=== PATIENT | male | born 1985 | race Caucasian/White ===

== ENCOUNTER 2021-06-12 12:07 | Inpatient (IN) | payer BC ==
[~2021-06-12] VITALS: Ht 190.5 cm; Wt 154.6 kg
[2021-06-12] MEDS ORDERED: normal saline 1000ML IV soln IVB ONE (12:25)
[2021-06-12 13:08] LABS: BASOPHILS % (AUTO) 0.2 % (0-1); EOSINOPHILS # (AUTO) 0.4 X10'3 (0-0.9); EOSINOPHILS % (AUTO) 2.7 % (0-6); HEMOGLOBIN 15.2 g/dl (14.0-17.9); LYMPHOCYTES % (AUTO) 7.7 % (21-51); MEAN CORPUSCULAR HEMOGLOBIN 30.5 PG (27.0-31.0); MEAN CORPUSCULAR HGB CONC 33.7 g/dL (33.0-36.5); MEAN CORPUSCULAR VOLUME 90.5 FL (78-98); MEAN PLATELET VOLUME 8.8 FL (7.4-10.4); MONOCYTES # (AUTO) 0.7 X10'3 (0-0.9); MONOCYTES % (AUTO) 5.7 % (2-12); NEUTROPHILS % (AUTO) 83.7 % (42-75); PLATELET COUNT 305 X10'3 (140-440); RED BLOOD COUNT 4.97 X10'6 (4.70-6.10); RED CELL DISTRIBUTION WIDTH 13.5 % (11.5-14.5); WHITE BLOOD COUNT 13.2 X10'3 (4.5-11.0)
[2021-06-12] MEDS ORDERED: IOHEXOL 12MG/ML oral solution 500 ML BOTTLE PO ONE (13:15)
[2021-06-12 13:26] LABS: ALANINE AMINOTRANSFERASE 44 U/L (12-78); ALBUMIN 3.5 G/DL (3.4-5.0); ALBUMIN/GLOBULIN RATIO 0.7 (1.1-1.5); ALKALINE PHOSPHATASE 102 IU/L (46-116); ANION GAP 13 (8-16); ASPARTATE AMINO TRANSFERASE 22 U/L (10-37); BILIRUBIN,TOTAL 1.2 MG/DL (0.1-1.0); BLOOD UREA NITROGEN 11 MG/DL (7-18); BUN/CREATININE RATIO 10.5 (5.4-32.0); CALCIUM 9.2 MG/DL (8.5-10.1); CHLORIDE 98 MMOL/L (99-107); CREATININE 1.05 MG/DL (0.60-1.10); GLUCOSE 106 MG/DL (70-104); LIPASE 82 U/L (73-393); SODIUM 137 MMOL/L (135-145); TOTAL CARBON DIOXIDE 25.6 MMOL/L (24-32); TOTAL PROTEIN 8.7 G/DL (6.4-8.2); eGFR 81 ML/MIN
[2021-06-12] MEDS ORDERED: iohexol 300mg/ml 100ml inj. ONE (13:26)
[2021-06-12] MEDS ORDERED: morphine 4 MG/ML inj SYRINge IV ONE ×2 (15:35)
[2021-06-12] MEDS ORDERED: normal saline 1000ml 1,000 ML IV ONE (15:35)
[2021-06-12] MEDS ORDERED: metroNIDAZOLE-Flagyl 500mg/NS 100 ML IV ONE (15:35)
[2021-06-12] MEDS ORDERED: ondansetron/PF 4mg/2ml inj IV ONE ×2 (15:35)
[2021-06-12] MEDS ORDERED: CefTRIAXone/D5W-Rocephin 1gm 50 ML IV ONE ×2 (15:35)
[2021-06-12] MEDS ORDERED: piperacillin/tazo 3.375gm/50ml 50 ML IV ONE (15:35)
[2021-06-12] MEDS ORDERED: DEXL60CA3 PO (15:41)
[2021-06-12] MEDS ORDERED: ALBU8HFA IH (15:41)
[2021-06-12] MEDS ORDERED: levoFLOXACIN-Levaquin 750MG/D5 150 ML IV STA (16:14)
[2021-06-12] MEDS ORDERED: potassium Cl 40MEQ/1/2NS 520ml 520 ML IV PRN ×2 (16:20)
[2021-06-12] MEDS ORDERED: magnesium 4gm in 100ml NS 100 ML IV PRN (16:20)
[2021-06-12] MEDS ORDERED: potassium Cl 20 mEq SR tablet PO PRN ×2 (16:20)
[2021-06-12] MEDS ORDERED: magnesium hydroxide 30ml (MOM) UD suspension PO PRN (16:20)
[2021-06-12] MEDS ORDERED: magnesium 2GM in 50ml NS 50 ML IV PRN (16:20)
[2021-06-12] MEDS ORDERED: acetaminophen 325mg tablet PO PRN (16:20)
[2021-06-12] MEDS ORDERED: HYDROmorphone inj. 0.5 MG/0.5 ML DISP.SYRIN IV PRN (16:20)
--- NOTE | 2021-06-12 16:23 | NUR ---
DR SADLER HAS BEEN AT BEDSIDE TO SEE PT
[2021-06-12] MEDS ORDERED: metroNIDAZOLE-Flagyl 500mg/NS 100 ML IV SCH (16:38)
[2021-06-12 16:53] LABS: CLARITY,URINE CLEAR (Clear); COLOR,URINE YELLOW (Yellow); GLUCOSE, URINE NEGATIVE (Neg); KETONES,URINE 40 mg/dl (Neg); LEUKOCYTE ESTERASE ,URINE NEGATIVE (Neg); NITRITES, URINE NEGATIVE (Neg); OCCULT BLOOD,URINE TRACE-INTACT (Neg); PH,URINE 5.5 (4.8-8.0); PROTEIN,URINE TRACE mg/dl (Neg); UA COLLECTION TYPE CLN CATCH MIDSTREAM; UROBILINOGEN,URINE 0.2 E.U/dL (0.2-1.0)
[2021-06-12 17:00] LABS: BACTERIA,URINE NONE SEEN /HPF (Neg); MUCUS STRANDS NONE SEEN /LPF (Neg); RBC,URINE 0-2 /HPF (0-2); SQUAMOUS EPITHELIAL CELL,UR NONE SEEN /LPF (FEW); WBC,URINE 0-4 /HPF (0-4)
[2021-06-12] MEDS: HYDROmorphone 1 mg/ml syringe IV PRN (17:16)
[2021-06-12] MEDS: normal saline 1000ml 1,000 ML IV SCH (17:20)
[2021-06-12] MEDS: K and/or MAG REPLACEMENT MC SCH (18:15)
--- NOTE | 2021-06-12 20:40 | NUR ---
DR DEWITT HAS BEEN AT BEDSIDE TO SEE PT, REPORTS IT IS OK FOR PT TO HAVE LOVENOX AND CLD
[2021-06-12] MEDS: enoxaparin 40mg/0.4ml syringe SQ SCH (21:06)
--- NOTE | 2021-06-13 01:05 | NUR ---
PATIENT ADMITTED TO ROOM 360A FROM ER FOR ABDOMINAL ABSCESS WITH PERFORATION OF THE SIGMOID COLON. PLACED COMFORTABLE IN BED. VITAL SIGNS TAKEN AND RECORDED.
[2021-06-13 01:20] VITALS: BP 140/78
[2021-06-13] MEDS: metroNIDAZOLE-Flagyl 500mg/NS 100 ML IV SCH ×4 (02:53→19:40)
[2021-06-13] MEDS: normal saline 1000ml 1,000 ML IV SCH ×3 (02:56→22:20)
[2021-06-13 05:55] LABS: BASOPHILS % (AUTO) 0.3 % (0-1); EOSINOPHILS # (AUTO) 0.5 X10'3 (0-0.9); EOSINOPHILS % (AUTO) 6.9 % (0-6); HEMOGLOBIN 13.4 g/dl (14.0-17.9); LYMPHOCYTES % (AUTO) 13.4 % (21-51); MEAN CORPUSCULAR HEMOGLOBIN 30.5 PG (27.0-31.0); MEAN CORPUSCULAR HGB CONC 33.6 g/dL (33.0-36.5); MEAN CORPUSCULAR VOLUME 90.8 FL (78-98); MEAN PLATELET VOLUME 8.8 FL (7.4-10.4); MONOCYTES # (AUTO) 0.7 X10'3 (0-0.9); MONOCYTES % (AUTO) 9.6 % (2-12); NEUTROPHILS # (AUTO) 5.4 X10'3 (1.8-7.7); NEUTROPHILS % (AUTO) 69.8 % (42-75); PLATELET COUNT 211 X10'3 (140-440); RED BLOOD COUNT 4.41 X10'6 (4.70-6.10); RED CELL DISTRIBUTION WIDTH 13.3 % (11.5-14.5); WHITE BLOOD COUNT 7.7 X10'3 (4.5-11.0)
[2021-06-13 06:24] LABS: ALANINE AMINOTRANSFERASE 91 U/L (12-78); ALBUMIN 2.8 G/DL (3.4-5.0); ALBUMIN/GLOBULIN RATIO 0.6 (1.1-1.5); ALKALINE PHOSPHATASE 145 IU/L (46-116); ANION GAP 11 (8-16); ASPARTATE AMINO TRANSFERASE 66 U/L (10-37); BILIRUBIN,TOTAL 0.7 MG/DL (0.1-1.0); BLOOD UREA NITROGEN 10 MG/DL (7-18); BUN/CREATININE RATIO 10.9 (5.4-32.0); CALCIUM 8.2 MG/DL (8.5-10.1); CHLORIDE 104 MMOL/L (99-107); CREATININE 0.92 MG/DL (0.60-1.10); GLUCOSE 97 MG/DL (70-104); MAGNESIUM 2.2 MG/DL (1.5-2.4); POTASSIUM 3.5 MMOL/L (3.5-5.1); SODIUM 141 MMOL/L (135-145); TOTAL CARBON DIOXIDE 26.3 MMOL/L (24-32); TOTAL PROTEIN 7.2 G/DL (6.4-8.2); eGFR > 90 ML/MIN
--- NOTE | 2021-06-13 06:30 | NUR ---
Problems reprioritized. Patient report given, questions answered & plan of care reviewed with ARMAND DELGADO.
--- NOTE | 2021-06-13 06:59 | NUR ---
Patient in room [facility]. I have received report from ALEE DELGADO and had the opportunity to ask questions and assume patient care.
[2021-06-13 07:05] VITALS: BP 115/66
[2021-06-13] MEDS: pantoprazole 40mg Tablet.DR PO SCH (07:14)
[2021-06-13] MEDS: K and/or MAG REPLACEMENT MC SCH ×2 (08:00→20:00)
[2021-06-13] MEDS: levoFLOXACIN-Levaquin 750MG/D5 150 ML IV SCH (08:52)
[2021-06-13] MEDS: HYDROmorphone 1 mg/ml syringe IV PRN ×3 (08:57→21:35)
[2021-06-13 11:00] VITALS: BP 112/72
[2021-06-13] MEDS: mag hydrox/Alum hydrox/simeth 30ml oral suspension PO PRN ×2 (13:26→23:48)
[2021-06-13] MEDS: ondansetron/PF 4mg/2ml inj IV PRN (17:23)
[2021-06-13 18:30] VITALS: BP 135/63
--- NOTE | 2021-06-13 18:46 | NUR ---
patient c/o pain 05/22 medicated with effect, but stated he felt dizzy with dilaudid and nauseous. medicated with Zofran with effect. Sweating profusley but afebrile and labs WNL. Seen by Dr Briones. . continues on IV ABX see EMAR. Report given to Israel DELGADO
--- NOTE | 2021-06-13 18:52 | NUR ---
I have received report from SANDY Rodríguez and had the opportunity to ask questions and assume patient care.
[2021-06-13] MEDS: enoxaparin 40mg/0.4ml syringe SQ SCH (19:38)
[2021-06-13] MEDS: lactobacillus rhamnosus 10,000 MMU CELLS/CAPSULE PO SCH (19:38)
[2021-06-13] MEDS ORDERED: proCHLORperazine 10 MG/2 ml inj IV PRN (22:45)
[2021-06-13] MEDS: Melatonin 3mg tablet PO PRN (23:49)
[2021-06-14 00:58] VITALS: BP 134/87
[2021-06-14 01:30] VITALS: BP 134/87
[2021-06-14] MEDS: metroNIDAZOLE-Flagyl 500mg/NS 100 ML IV SCH ×4 (02:06→19:45)
[2021-06-14] MEDS: normal saline 1000ml 1,000 ML IV SCH ×2 (04:33→14:27)
--- NOTE | 2021-06-14 06:10 | NUR ---
Problems reprioritized. Patient report given, questions answered & plan of care reviewed with SANDY Titus.
--- NOTE | 2021-06-14 06:20 | NUR ---
Patient in room [facility]. I have received report from Rolly DELGADO and had the opportunity to ask questions and assume patient care.
[2021-06-14 07:16] LABS: BASOPHILS % (AUTO) 0.2 % (0-1); EOSINOPHILS # (AUTO) 0.5 X10'3 (0-0.9); EOSINOPHILS % (AUTO) 9.5 % (0-6); HEMATOCRIT 40.4 % (42.0-52.0); HEMOGLOBIN 13.7 g/dl (14.0-17.9); LYMPHOCYTES % (AUTO) 20.8 % (21-51); MEAN CORPUSCULAR HEMOGLOBIN 29.9 PG (27.0-31.0); MEAN PLATELET VOLUME 8.3 FL (7.4-10.4); MONOCYTES # (AUTO) 0.5 X10'3 (0-0.9); MONOCYTES % (AUTO) 9.2 % (2-12); NEUTROPHILS % (AUTO) 60.3 % (42-75); PLATELET COUNT 206 X10'3 (140-440); RED BLOOD COUNT 4.59 X10'6 (4.70-6.10); RED CELL DISTRIBUTION WIDTH 13.3 % (11.5-14.5)
[2021-06-14 07:52] LABS: ALANINE AMINOTRANSFERASE 122 U/L (12-78); ALBUMIN 2.6 G/DL (3.4-5.0); ALBUMIN/GLOBULIN RATIO 0.6 (1.1-1.5); ALKALINE PHOSPHATASE 220 IU/L (46-116); ANION GAP 12 (8-16); ASPARTATE AMINO TRANSFERASE 81 U/L (10-37); BILIRUBIN,TOTAL 0.5 MG/DL (0.1-1.0); BLOOD UREA NITROGEN 7 MG/DL (7-18); BUN/CREATININE RATIO 8.8 (5.4-32.0); CALCIUM 8.2 MG/DL (8.5-10.1); CHLORIDE 106 MMOL/L (99-107); GLUCOSE 100 MG/DL (70-104); MAGNESIUM 2.1 MG/DL (1.5-2.4); POTASSIUM 3.9 MMOL/L (3.5-5.1); SODIUM 141 MMOL/L (135-145); TOTAL PROTEIN 6.9 G/DL (6.4-8.2); eGFR > 90 ML/MIN
[2021-06-14] MEDS: lactobacillus rhamnosus 10,000 MMU CELLS/CAPSULE PO SCH ×2 (07:56→19:45)
[2021-06-14] MEDS: levoFLOXACIN-Levaquin 750MG/D5 150 ML IV SCH (07:56)
[2021-06-14] MEDS: pantoprazole 40mg Tablet.DR PO SCH (07:56)
[2021-06-14 08:00] VITALS: BP 124/68
[2021-06-14] MEDS: K and/or MAG REPLACEMENT MC SCH ×2 (08:08→19:46)
[2021-06-14 11:00] VITALS: BP 145/87
[2021-06-14] MEDS: dronabinol 2.5mg capsule PO PRN ×2 (11:03→18:37)
[2021-06-14] MEDS: DEXILANT 60 MG PO SCH (15:32)
[2021-06-14 18:00] VITALS: BP 153/86
--- NOTE | 2021-06-14 18:30 | NUR ---
Problems reprioritized. Patient report given, questions answered & plan of care reviewed with Maricarmen DELAGDO.
--- NOTE | 2021-06-14 18:56 | NUR ---
Patient in room [facility]. I have received report from Ariela DELGADO and had the opportunity to ask questions and assume patient care. Pt is sitting on the side of the bed with his significant other. No signs of distress, will continue to monitor.
[2021-06-14] MEDS: enoxaparin 40mg/0.4ml syringe SQ SCH (19:45)
[2021-06-14] MEDS: Melatonin 3mg tablet PO PRN (22:31)
[2021-06-14] MEDS: ondansetron/PF 4mg/2ml inj IV PRN (22:32)
[2021-06-14 23:46] VITALS: BP 130/80
[2021-06-15] MEDS: metroNIDAZOLE-Flagyl 500mg/NS 100 ML IV SCH ×4 (02:36→20:25)
[2021-06-15] MEDS: normal saline 1000ml 1,000 ML IV SCH ×2 (05:40→14:20)
[2021-06-15 06:04] LABS: BASOPHILS % (AUTO) 0.3 % (0-1); EOSINOPHILS # (AUTO) 0.6 X10'3 (0-0.9); EOSINOPHILS % (AUTO) 10.8 % (0-6); HEMATOCRIT 40.9 % (42.0-52.0); LYMPHOCYTES # (AUTO) 1.3 X10'3 (1.1-4.8); LYMPHOCYTES % (AUTO) 22.4 % (21-51); MEAN CORPUSCULAR HEMOGLOBIN 30.2 PG (27.0-31.0); MEAN CORPUSCULAR HGB CONC 34.3 g/dL (33.0-36.5); MEAN CORPUSCULAR VOLUME 88.2 FL (78-98); MEAN PLATELET VOLUME 8.6 FL (7.4-10.4); MONOCYTES # (AUTO) 0.5 X10'3 (0-0.9); NEUTROPHILS # (AUTO) 3.3 X10'3 (1.8-7.7); NEUTROPHILS % (AUTO) 57.5 % (42-75); PLATELET COUNT 250 X10'3 (140-440); RED BLOOD COUNT 4.63 X10'6 (4.70-6.10); RED CELL DISTRIBUTION WIDTH 13.2 % (11.5-14.5); WHITE BLOOD COUNT 5.7 X10'3 (4.5-11.0)
[2021-06-15 06:13] LABS: ALANINE AMINOTRANSFERASE 99 U/L (12-78); ALBUMIN 2.8 G/DL (3.4-5.0); ALBUMIN/GLOBULIN RATIO 0.7 (1.1-1.5); ALKALINE PHOSPHATASE 176 IU/L (46-116); ANION GAP 10 (8-16); ASPARTATE AMINO TRANSFERASE 43 U/L (10-37); BILIRUBIN,TOTAL 0.4 MG/DL (0.1-1.0); BLOOD UREA NITROGEN 7 MG/DL (7-18); BUN/CREATININE RATIO 8.8 (5.4-32.0); CALCIUM 8.4 MG/DL (8.5-10.1); CHLORIDE 104 MMOL/L (99-107); GLUCOSE 88 MG/DL (70-104); POTASSIUM 3.9 MMOL/L (3.5-5.1); SODIUM 138 MMOL/L (135-145); TOTAL CARBON DIOXIDE 23.7 MMOL/L (24-32); eGFR > 90 ML/MIN
--- NOTE | 2021-06-15 06:13 | NUR ---
Problems reprioritized. Patient report given, questions answered & plan of care reviewed with Ariela DELGADO.
--- NOTE | 2021-06-15 06:52 | NUR ---
Patient in room [facility]. I have received report from Moraima DELGADO and had the opportunity to ask questions and assume patient care.
[2021-06-15] MEDS: lactobacillus rhamnosus 10,000 MMU CELLS/CAPSULE PO SCH ×2 (07:42→20:25)
[2021-06-15] MEDS: dronabinol 2.5mg capsule PO PRN ×2 (07:42→14:27)
[2021-06-15] MEDS: DEXILANT 60 MG PO SCH (07:42)
[2021-06-15] MEDS: K and/or MAG REPLACEMENT MC SCH ×2 (07:43→19:53)
[2021-06-15] MEDS: levoFLOXACIN-Levaquin 750MG/D5 150 ML IV SCH (07:43)
[2021-06-15 08:00] VITALS: BP 120/74
[2021-06-15 12:00] VITALS: BP 121/66
[2021-06-15] MEDS ORDERED: ondansetron 4mg rapidly disintigrating tab PO PRN (17:20)
--- NOTE | 2021-06-15 18:30 | NUR ---
Problems reprioritized. Patient report given, questions answered & plan of care reviewed with Moraima DELGADO.
--- NOTE | 2021-06-15 18:31 | NUR ---
Patient IV was bad 1400 dose of Flagyl was not given.
--- NOTE | 2021-06-15 19:00 | NUR ---
Patient in room [facility]. I have received report from Ariela DELGADO and had the opportunity to ask questions and assume patient care. Pt is sitting on the side of the bed visiting with his .
[2021-06-15 20:00] VITALS: BP 123/69
[2021-06-15] MEDS: mag hydrox/Alum hydrox/simeth 30ml oral suspension PO PRN (20:24)
[2021-06-15] MEDS: enoxaparin 40mg/0.4ml syringe SQ SCH (20:25)
--- NOTE | 2021-06-15 20:44 | NUR ---
Pt had no IV at the beginning of shift. IV was successfully placed at 2014. At that time I found that the 1399 Flagyl was hanging at bedside, unspiked by the dayshift RN, even though it had been scanned in [place]. I called pharmacy as another Flagyl was now due at 1999. Pharmacy said they were unable to antonieta it as a missed dose, or undo the unadministered dose, since the dayshift RN should have addressed it on her shift. water resource consultant, Loraine, was notified and the 1999 dose was administered per MD orders.
[2021-06-15] MEDS: Melatonin 3mg tablet PO PRN (23:41)
[2021-06-15] MEDS: ondansetron/PF 4mg/2ml inj IV PRN (23:43)
[2021-06-16 00:02] VITALS: BP 121/66
[2021-06-16] MEDS: normal saline 1000ml 1,000 ML IV SCH (00:20)
[2021-06-16] MEDS: metroNIDAZOLE-Flagyl 500mg/NS 100 ML IV SCH ×3 (02:30→14:04)
--- NOTE | 2021-06-16 06:30 | NUR ---
Problems reprioritized. Patient report given, questions answered & plan of care reviewed with Jasvir DELGADO.
[2021-06-16 06:49] LABS: BASOPHILS % (AUTO) 0.4 % (0-1); EOSINOPHILS # (AUTO) 0.5 X10'3 (0-0.9); EOSINOPHILS % (AUTO) 9.3 % (0-6); HEMATOCRIT 42.1 % (42.0-52.0); HEMOGLOBIN 14.4 g/dl (14.0-17.9); LYMPHOCYTES % (AUTO) 19.1 % (21-51); MEAN CORPUSCULAR HEMOGLOBIN 30.4 PG (27.0-31.0); MEAN CORPUSCULAR HGB CONC 34.1 g/dL (33.0-36.5); MEAN CORPUSCULAR VOLUME 89.1 FL (78-98); MEAN PLATELET VOLUME 8.6 FL (7.4-10.4); MONOCYTES # (AUTO) 0.6 X10'3 (0-0.9); MONOCYTES % (AUTO) 10.8 % (2-12); NEUTROPHILS # (AUTO) 3.1 X10'3 (1.8-7.7); NEUTROPHILS % (AUTO) 60.4 % (42-75); PLATELET COUNT 242 X10'3 (140-440); RED BLOOD COUNT 4.73 X10'6 (4.70-6.10); RED CELL DISTRIBUTION WIDTH 13.3 % (11.5-14.5); WHITE BLOOD COUNT 5.1 X10'3 (4.5-11.0)
[2021-06-16 07:03] LABS: ALANINE AMINOTRANSFERASE 76 U/L (12-78); ALBUMIN 2.9 G/DL (3.4-5.0); ALBUMIN/GLOBULIN RATIO 0.7 (1.1-1.5); ALKALINE PHOSPHATASE 143 IU/L (46-116); ANION GAP 12 (8-16); ASPARTATE AMINO TRANSFERASE 32 U/L (10-37); BILIRUBIN,TOTAL 0.4 MG/DL (0.1-1.0); BLOOD UREA NITROGEN 5 MG/DL (7-18); BUN/CREATININE RATIO 5.6 (5.4-32.0); CALCIUM 8.2 MG/DL (8.5-10.1); CHLORIDE 104 MMOL/L (99-107); CREATININE 0.89 MG/DL (0.60-1.10); GLUCOSE 96 MG/DL (70-104); MAGNESIUM 1.8 MG/DL (1.5-2.4); POTASSIUM 3.7 MMOL/L (3.5-5.1); SODIUM 139 MMOL/L (135-145); TOTAL CARBON DIOXIDE 23.2 MMOL/L (24-32); TOTAL PROTEIN 7.1 G/DL (6.4-8.2); eGFR > 90 ML/MIN
[2021-06-16 08:00] VITALS: BP 113/69
[2021-06-16] MEDS: K and/or MAG REPLACEMENT MC SCH (08:00)
[2021-06-16] MEDS: lactobacillus rhamnosus 10,000 MMU CELLS/CAPSULE PO SCH (08:12)
[2021-06-16] MEDS: DEXILANT 60 MG PO SCH (08:13)
[2021-06-16] MEDS: levoFLOXACIN-Levaquin 750MG/D5 150 ML IV SCH (08:13)
[2021-06-16] MEDS: mag hydrox/Alum hydrox/simeth 30ml oral suspension PO PRN (09:56)
[2021-06-16] MEDS ORDERED: METR500T PO (10:54)
[2021-06-16] MEDS ORDERED: LEVO500T89 PO (10:54)
[2021-06-16 11:00] VITALS: BP 114/76
== END 2021-06-16 16:15 | disposition home or self-care (01) | DRG 391 ==
LOC: ER 12:07 → ED HOLD 16:16 → SUR 3N 06-13 01:00
PROVIDERS: ADMIT Family Medicine; ATTEND Family Medicine
PROC: BW211ZZ Computerized Tomography (CT Scan) of Abdomen and Pelvis using Low Osmolar Contrast (ICD-10-PCS; principal; 2021-06-12)
DX: K57.20 Diverticulitis of large intestine with perforation and abscess without bleeding (principal); K65.9 Peritonitis, unspecified; Z68.41 Body mass index [BMI] 40.0-44.9, adult; L02.211 Cutaneous abscess of abdominal wall; E66.01 Morbid (severe) obesity due to excess calories; R74.01 Elevation of levels of liver transaminase levels; F12.90 Cannabis use, unspecified, uncomplicated; R94.5 Abnormal results of liver function studies; F41.9 Anxiety disorder, unspecified; Z83.3 Family history of diabetes mellitus; Z88.0 Allergy status to penicillin; Z88.1 Allergy status to other antibiotic agents; Z88.8 Allergy status to other drugs, medicaments and biological substances; Z79.899 Other long term (current) drug therapy
CPT/HCPCS: 36415; 74177; 80053; 81001; 82948; 83605; 83690; 83735; 85025; 87040; 87081; 96361; 96365; 96375; 99285; G0378; J0780; J1170; J1650; J1956; J2270; J2405; J3490; J7030; Q0167; Q9967

== ENCOUNTER 2021-06-26 18:45 | Inpatient (IN) | payer BC ==
[~2021-06-26] VITALS: Ht 190.5 cm; Wt 145.4 kg
[~2021-06-26 18:45] MED LIST: ALBU8HFA IH; DEXL60CA3 PO
[2021-06-26] MEDS ORDERED: fentaNYL/PF 50MCG/1 ML 2ML syringe IV ONE (19:40)
[2021-06-26] MEDS ORDERED: normal saline 1000ML IV soln IV ONE (19:40)
[2021-06-26] MEDS ORDERED: ondansetron/PF 4mg/2ml inj IV ONE (19:40)
[2021-06-26] MEDS ORDERED: levoFLOXACIN-Levaquin 750MG/D5 150 ML IV STA (19:40)
[2021-06-26] MEDS ORDERED: vancomycin/NS 1 GM ADD-VANTAGE 250 ML IV ONE (19:40)
[2021-06-26] MEDS ORDERED: iohexol 300mg/ml 100ml inj. ONE (19:43)
[2021-06-26 20:17] LABS: BASOPHILS % (AUTO) 0.3 % (0-1); EOSINOPHILS % (AUTO) 0.3 % (0-6); HEMOGLOBIN 15.3 g/dl (14.0-17.9); LYMPHOCYTES # (AUTO) 1.1 X10'3 (1.1-4.8); LYMPHOCYTES % (AUTO) 8.5 % (21-51); MEAN CORPUSCULAR HEMOGLOBIN 29.6 PG (27.0-31.0); MEAN CORPUSCULAR HGB CONC 33.4 g/dL (33.0-36.5); MEAN CORPUSCULAR VOLUME 88.7 FL (78-98); MEAN PLATELET VOLUME 9.4 FL (7.4-10.4); MONOCYTES # (AUTO) 0.8 X10'3 (0-0.9); MONOCYTES % (AUTO) 6.4 % (2-12); NEUTROPHILS # (AUTO) 10.8 X10'3 (1.8-7.7); NEUTROPHILS % (AUTO) 84.5 % (42-75); PLATELET COUNT 266 X10'3 (140-440); RED BLOOD COUNT 5.19 X10'6 (4.70-6.10); RED CELL DISTRIBUTION WIDTH 13.9 % (11.5-14.5); WHITE BLOOD COUNT 12.8 X10'3 (4.5-11.0)
[2021-06-26 20:24] LABS: ALANINE AMINOTRANSFERASE 42 U/L (12-78); ALBUMIN 3.8 G/DL (3.4-5.0); ALKALINE PHOSPHATASE 73 IU/L (46-116); ANION GAP 11 (8-16); ASPARTATE AMINO TRANSFERASE 28 U/L (10-37); BILIRUBIN,TOTAL 0.8 MG/DL (0.1-1.0); BLOOD UREA NITROGEN 5 MG/DL (7-18); CALCIUM 8.5 MG/DL (8.5-10.1); CHLORIDE 103 MMOL/L (99-107); GLUCOSE 105 MG/DL (70-104); MAGNESIUM 1.8 MG/DL (1.5-2.4); SODIUM 139 MMOL/L (135-145); TOTAL CARBON DIOXIDE 25.4 MMOL/L (24-32); TOTAL PROTEIN 7.8 G/DL (6.4-8.2)
[2021-06-26 20:48] LABS: BUN/CREATININE RATIO 4.7 (5.4-32.0); CREATININE 1.06 MG/DL (0.60-1.10); eGFR 80 ML/MIN
[2021-06-26] MEDS ORDERED: temazepam 15mg capsule PO PRN (21:00)
[2021-06-26] MEDS ORDERED: acetaminophen 325mg tablet PO ONE (21:15)
[2021-06-26] MEDS ORDERED: magnesium hydroxide 30ml (MOM) UD suspension PO PRN (21:30)
[2021-06-26] MEDS ORDERED: acetaminophen 650mg rectal suppository RC PRN (21:30)
[2021-06-26] MEDS ORDERED: diphenhydrAMINE 50 mg/ml inj IV PRN (21:30)
[2021-06-26] MEDS ORDERED: diphenhydrAMINE 25mg capsule PO PRN (21:30)
[2021-06-26] MEDS ORDERED: ondansetron 4mg rapidly disintigrating tab PO PRN (21:30)
[2021-06-26] MEDS ORDERED: morphine 2 MG/ML inj. syringe IV PRN (21:30)
[2021-06-26] MEDS ORDERED: bisacodyl 10mg suppository rectal RC PRN (21:30)
[2021-06-26] MEDS ORDERED: acetaminophen 325mg tablet PO PRN ×2 (21:30)
[2021-06-26] MEDS ORDERED: ondansetron/PF 4mg/2ml inj IV PRN (21:30)
[2021-06-26] MEDS: normal saline 1000ml 1,000 ML IV SCH (21:30)
[2021-06-26] MEDS ORDERED: HYDROcodone/acetaminophen 5mg/325mg tablet PO PRN (21:30)
[2021-06-26] MEDS ORDERED: mag hydrox/Alum hydrox/simeth 30ml oral suspension PO PRN (21:30)
[2021-06-26] MEDS ORDERED: HYDROmorphone inj. 0.5 MG/0.5 ML DISP.SYRIN IV PRN (21:30)
[2021-06-26 21:50] LABS: CLARITY,URINE CLEAR (Clear); COLOR,URINE YELLOW (Yellow); GLUCOSE, URINE NEGATIVE (Neg); KETONES,URINE NEGATIVE (Neg); LEUKOCYTE ESTERASE ,URINE NEGATIVE (Neg); NITRITES, URINE NEGATIVE (Neg); OCCULT BLOOD,URINE NEGATIVE (Neg); PROTEIN,URINE NEGATIVE (Neg); UROBILINOGEN,URINE 0.2 E.U/dL (0.2-1.0)
[2021-06-26] MEDS: morphine 2 MG/ML inj. syringe IV PRN (21:59)
[2021-06-26 22:01] LABS: PARTIAL THROMBOPLASTIN TIME 28 SECONDS (22-32)
[2021-06-26 22:02] LABS: UA COLLECTION TYPE URINAL
[2021-06-26 22:05] LABS: PHOSPHORUS 3.6 MG/DL (2.3-4.5)
[2021-06-26 23:00] VITALS: BP 137/82
--- NOTE | 2021-06-26 23:00 | NUR ---
Patient arrived to the floor via gurney accompanied by PCT. Placed in 351. Patient awake, alert and oriented on room air, in no apparent distress. Call light and items of frequent use within reach. Will continue to monitor.
[2021-06-26] MEDS: heparin, porcine 5000 units/ml vial SQ SCH (23:37)
[2021-06-26] MEDS: metroNIDAZOLE-Flagyl 500mg/NS 100 ML IV SCH (23:40)
[2021-06-27] MEDS: HYDROcodone/acetaminophen 10/325mg tab PO PRN ×4 (00:46→11:45)
--- NOTE | 2021-06-27 06:20 | NUR ---
Patient in room [facility]. I have received report from SANDY Hunt & LAKISHA RN and had the opportunity to ask questions and assume patient care.
[2021-06-27 06:30] VITALS: BP 126/69
[2021-06-27 06:50] LABS: BASOPHILS % (AUTO) 0.2 % (0-1); EOSINOPHILS # (AUTO) 0.1 X10'3 (0-0.9); EOSINOPHILS % (AUTO) 1.1 % (0-6); HEMATOCRIT 40.3 % (42.0-52.0); HEMOGLOBIN 13.7 g/dl (14.0-17.9); LYMPHOCYTES # (AUTO) 1.2 X10'3 (1.1-4.8); LYMPHOCYTES % (AUTO) 17.7 % (21-51); MEAN CORPUSCULAR HEMOGLOBIN 29.9 PG (27.0-31.0); MEAN CORPUSCULAR HGB CONC 33.9 g/dL (33.0-36.5); MEAN CORPUSCULAR VOLUME 88.1 FL (78-98); MEAN PLATELET VOLUME 9.5 FL (7.4-10.4); MONOCYTES # (AUTO) 0.8 X10'3 (0-0.9); MONOCYTES % (AUTO) 11.2 % (2-12); NEUTROPHILS # (AUTO) 4.8 X10'3 (1.8-7.7); NEUTROPHILS % (AUTO) 69.8 % (42-75); PLATELET COUNT 171 X10'3 (140-440); RED BLOOD COUNT 4.57 X10'6 (4.70-6.10); RED CELL DISTRIBUTION WIDTH 13.7 % (11.5-14.5); WHITE BLOOD COUNT 6.9 X10'3 (4.5-11.0)
--- NOTE | 2021-06-27 07:01 | NUR ---
Problems reprioritized. Patient report given, questions answered & plan of care reviewed with SANDY Mike.
--- NOTE | 2021-06-27 07:01 | NUR ---
I have reviewed and I disagree with some of the interventions, assessments performed and documented by SANDY Wilde. Corrections have been made appropriately.
[2021-06-27 07:11] LABS: ALANINE AMINOTRANSFERASE 42 U/L (12-78); ALBUMIN 2.9 G/DL (3.4-5.0); ALBUMIN/GLOBULIN RATIO 0.8 (1.1-1.5); ALKALINE PHOSPHATASE 69 IU/L (46-116); ANION GAP 7 (8-16); ASPARTATE AMINO TRANSFERASE 43 U/L (10-37); BILIRUBIN,TOTAL 1.6 MG/DL (0.1-1.0); BLOOD UREA NITROGEN 5 MG/DL (7-18); BUN/CREATININE RATIO 4.8 (5.4-32.0); CALCIUM 8.1 MG/DL (8.5-10.1); CHLORIDE 107 MMOL/L (99-107); CHOL/HDL RATIO 2.9 (0.00-4.99); CHOLESTEROL 93 MG/DL (0-200); CREATININE 1.05 MG/DL (0.60-1.10); GLUCOSE 107 MG/DL (70-104); HDL CHOLESTEROL 32 MG/DL (35-60); LDL CHOLESTEROL 42 MG/DL (50-100); POTASSIUM 3.7 MMOL/L (3.5-5.1); SODIUM 142 MMOL/L (135-145); TOTAL CARBON DIOXIDE 28.4 MMOL/L (24-32); TOTAL PROTEIN 6.4 G/DL (6.4-8.2); TRIGLYCERIDES 83 MG/DL (20-135); eGFR 81 ML/MIN
[2021-06-27] MEDS: normal saline 1000ml 1,000 ML IV SCH ×3 (07:30→23:53)
[2021-06-27] MEDS: docusate sod 100mg capsule PO SCH ×2 (08:00→20:00)
[2021-06-27] MEDS ORDERED: pantoprazole 40 MG vial IV SCH (08:00)
[2021-06-27] MEDS: metroNIDAZOLE-Flagyl 500mg/NS 100 ML IV SCH ×3 (09:27→23:36)
[2021-06-27] MEDS: heparin, porcine 5000 units/ml vial SQ SCH ×3 (09:31→23:36)
[2021-06-27] MEDS: morphine 2 MG/ML inj. syringe IV PRN (09:35)
[2021-06-27] MEDS ORDERED: potassium Cl 40MEQ/1/2NS 520ml 520 ML IV PRN (10:30)
[2021-06-27] MEDS ORDERED: potassium Cl 20 mEq SR tablet PO PRN ×2 (10:30)
[2021-06-27] MEDS ORDERED: magnesium Cl slow-release 64mg tablet PO PRN (10:30)
[2021-06-27] MEDS ORDERED: magnesium 4gm in 100ml NS 100 ML IV PRN (10:30)
[2021-06-27 11:26] LABS: MAGNESIUM 1.9 MG/DL (1.5-2.4)
[2021-06-27] MEDS: levoFLOXACIN-Levaquin 750MG/D5 150 ML IV SCH (11:45)
[2021-06-27 12:04] LABS: OCCULT BLOOD STOOL NEGATIVE (Neg)
[2021-06-27 12:09] LABS: C DIFF SPECIMEN=DIARRHEA? ACCEPTABLE; C DIFFICILE TOXINS A&B NEGATIVE (Neg)
[2021-06-27 12:10] LABS: C DIFF ANTIGEN NEGATIVE (NEGATIVE)
[2021-06-27] MEDS ORDERED: metoclopramide 5 mg/ml inj IV PRN (15:25)
[2021-06-27] MEDS ORDERED: ketorolac trometh. 30mg/ml inj. IV ONE (15:25)
[2021-06-27 15:49] LABS: URINE AMPHETAMINE SCREEN NEGATIVE (Neg); URINE BARBITUATE SCREEN NEGATIVE (Neg); URINE BENZODIAZEPINES SCREEN NEGATIVE (Neg); URINE CANNABINOID SCREEN POSITIVE (Neg); URINE COCAINE SCREEN NEGATIVE (Neg); URINE METHADONE SCREEN NEGATIVE (Neg); URINE OPIATE SCREEN POSITIVE (Neg); URINE PHENCYCLIDINE SCREEN NEGATIVE (Neg)
[2021-06-27] MEDS: LORazepam 2 mg/ml vial IV PRN ×5 (16:40→23:48)
[2021-06-27 17:00] VITALS: BP 141/86
[2021-06-27 19:43] VITALS: BP 127/66
--- NOTE | 2021-06-27 19:50 | NUR ---
Patient in room [facility]. I have received report from SANDY Mike and had the opportunity to ask questions and assume patient care.
--- NOTE | 2021-06-27 19:50 | NUR ---
Problems reprioritized. Patient report given, questions answered & plan of care reviewed with SANDY Costa.
[2021-06-27] MEDS: K and/or MAG REPLACEMENT MC SCH (20:00)
[2021-06-27] MEDS: lactobacillus rhamnosus 10,000 MMU CELLS/CAPSULE PO SCH (21:55)
[2021-06-27] MEDS: pantoprazole 40mg Tablet.DR PO SCH (21:56)
[2021-06-27 23:36] VITALS: BP 137/82
[2021-06-28 06:03] LABS: BASOPHILS % (AUTO) 0.2 % (0-1); EOSINOPHILS # (AUTO) 0.1 X10'3 (0-0.9); EOSINOPHILS % (AUTO) 1.6 % (0-6); HEMATOCRIT 39.4 % (42.0-52.0); HEMOGLOBIN 13.1 g/dl (14.0-17.9); LYMPHOCYTES # (AUTO) 1.3 X10'3 (1.1-4.8); LYMPHOCYTES % (AUTO) 20.8 % (21-51); MEAN CORPUSCULAR HEMOGLOBIN 29.9 PG (27.0-31.0); MEAN CORPUSCULAR HGB CONC 33.3 g/dL (33.0-36.5); MEAN CORPUSCULAR VOLUME 89.9 FL (78-98); MEAN PLATELET VOLUME 9.6 FL (7.4-10.4); MONOCYTES # (AUTO) 0.6 X10'3 (0-0.9); MONOCYTES % (AUTO) 10.4 % (2-12); NEUTROPHILS # (AUTO) 4.1 X10'3 (1.8-7.7); PLATELET COUNT 180 X10'3 (140-440); RED BLOOD COUNT 4.39 X10'6 (4.70-6.10); RED CELL DISTRIBUTION WIDTH 13.5 % (11.5-14.5); WHITE BLOOD COUNT 6.1 X10'3 (4.5-11.0)
[2021-06-28 06:17] LABS: ALANINE AMINOTRANSFERASE 41 U/L (12-78); ALBUMIN 2.7 G/DL (3.4-5.0); ALBUMIN/GLOBULIN RATIO 0.8 (1.1-1.5); ALKALINE PHOSPHATASE 65 IU/L (46-116); ANION GAP 8 (8-16); ASPARTATE AMINO TRANSFERASE 23 U/L (10-37); BILIRUBIN,TOTAL 0.7 MG/DL (0.1-1.0); BLOOD UREA NITROGEN 6 MG/DL (7-18); BUN/CREATININE RATIO 6.4 (5.4-32.0); CALCIUM 7.8 MG/DL (8.5-10.1); CHLORIDE 105 MMOL/L (99-107); CREATININE 0.94 MG/DL (0.60-1.10); GLUCOSE 94 MG/DL (70-104); MAGNESIUM 1.8 MG/DL (1.5-2.4); POTASSIUM 3.5 MMOL/L (3.5-5.1); SODIUM 140 MMOL/L (135-145); TOTAL PROTEIN 6.2 G/DL (6.4-8.2); eGFR > 90 ML/MIN
--- NOTE | 2021-06-28 06:23 | NUR ---
Patient in room [facility]. I have received report from Julissa DELGADO and had the opportunity to ask questions and assume patient care.
--- NOTE | 2021-06-28 06:28 | NUR ---
Problems reprioritized. Patient report given, questions answered & plan of care reviewed with SANDY Titus.
[2021-06-28 08:00] VITALS: BP 117/72
[2021-06-28] MEDS: docusate sod 100mg capsule PO SCH ×2 (08:46→20:00)
[2021-06-28] MEDS: lactobacillus rhamnosus 10,000 MMU CELLS/CAPSULE PO SCH ×2 (08:46→20:53)
[2021-06-28] MEDS: metroNIDAZOLE-Flagyl 500mg/NS 100 ML IV SCH ×2 (08:46→16:33)
[2021-06-28] MEDS: levoFLOXACIN-Levaquin 750MG/D5 150 ML IV SCH (08:46)
[2021-06-28] MEDS: pantoprazole 40mg Tablet.DR PO SCH ×2 (08:46→20:53)
[2021-06-28] MEDS: heparin, porcine 5000 units/ml vial SQ SCH ×2 (08:47→16:34)
[2021-06-28] MEDS: LORazepam 2 mg/ml vial IV PRN ×4 (08:47→20:53)
[2021-06-28] MEDS: K and/or MAG REPLACEMENT MC SCH ×2 (08:56→20:00)
[2021-06-28] MEDS: normal saline 1000ml 1,000 ML IV SCH ×2 (10:15→22:07)
[2021-06-28] MEDS: ketorolac tromethamine 15mg/ml inj. IV PRN (10:15)
[2021-06-28 12:15] VITALS: BP 149/90
[2021-06-28 18:00] VITALS: BP 144/85
--- NOTE | 2021-06-28 18:25 | NUR ---
Problems reprioritized. Patient report given, questions answered & plan of care reviewed with Rolly DELGADO.
[2021-06-28 18:50] VITALS: BP 144/85
[2021-06-28 23:48] VITALS: BP 148/100
[2021-06-29] MEDS: heparin, porcine 5000 units/ml vial SQ SCH ×2 (00:44→09:45)
[2021-06-29] MEDS: metroNIDAZOLE-Flagyl 500mg/NS 100 ML IV SCH ×2 (00:44→09:43)
[2021-06-29 06:47] LABS: BASOPHILS % (AUTO) 0.2 % (0-1); EOSINOPHILS # (AUTO) 0.1 X10'3 (0-0.9); EOSINOPHILS % (AUTO) 2.5 % (0-6); HEMATOCRIT 38.4 % (42.0-52.0); HEMOGLOBIN 12.7 g/dl (14.0-17.9); LYMPHOCYTES # (AUTO) 1.4 X10'3 (1.1-4.8); LYMPHOCYTES % (AUTO) 32.1 % (21-51); MEAN CORPUSCULAR HEMOGLOBIN 29.7 PG (27.0-31.0); MEAN CORPUSCULAR HGB CONC 33.1 g/dL (33.0-36.5); MEAN CORPUSCULAR VOLUME 89.6 FL (78-98); MEAN PLATELET VOLUME 9.7 FL (7.4-10.4); MONOCYTES # (AUTO) 0.4 X10'3 (0-0.9); MONOCYTES % (AUTO) 10.1 % (2-12); NEUTROPHILS # (AUTO) 2.3 X10'3 (1.8-7.7); NEUTROPHILS % (AUTO) 55.1 % (42-75); PLATELET COUNT 183 X10'3 (140-440); RED BLOOD COUNT 4.29 X10'6 (4.70-6.10); RED CELL DISTRIBUTION WIDTH 13.7 % (11.5-14.5); WHITE BLOOD COUNT 4.2 X10'3 (4.5-11.0)
[2021-06-29 06:56] LABS: ALANINE AMINOTRANSFERASE 27 U/L (12-78); ALBUMIN 2.6 G/DL (3.4-5.0); ALBUMIN/GLOBULIN RATIO 0.7 (1.1-1.5); ALKALINE PHOSPHATASE 65 IU/L (46-116); ANION GAP 10 (8-16); ASPARTATE AMINO TRANSFERASE 13 U/L (10-37); BILIRUBIN,TOTAL 0.4 MG/DL (0.1-1.0); BLOOD UREA NITROGEN 4 MG/DL (7-18); BUN/CREATININE RATIO 4.7 (5.4-32.0); CALCIUM 7.8 MG/DL (8.5-10.1); CHLORIDE 110 MMOL/L (99-107); CREATININE 0.86 MG/DL (0.60-1.10); GLUCOSE 96 MG/DL (70-104); MAGNESIUM 2.1 MG/DL (1.5-2.4); POTASSIUM 3.6 MMOL/L (3.5-5.1); SODIUM 145 MMOL/L (135-145); TOTAL CARBON DIOXIDE 25.4 MMOL/L (24-32); TOTAL PROTEIN 6.1 G/DL (6.4-8.2); eGFR > 90 ML/MIN
--- NOTE | 2021-06-29 07:02 | NUR ---
Problems reprioritized. Patient report given, questions answered & plan of care reviewed with CAROLE. Addendum: 06/29/21 at 0702 by Ata Vigil RN Amended: Links added.
[2021-06-29 07:20] VITALS: BP 150/87
[2021-06-29] MEDS: K and/or MAG REPLACEMENT MC SCH (08:00)
[2021-06-29] MEDS: lactobacillus rhamnosus 10,000 MMU CELLS/CAPSULE PO SCH (09:44)
[2021-06-29] MEDS: LORazepam 2 mg/ml vial IV PRN (09:44)
[2021-06-29] MEDS: normal saline 1000ml 1,000 ML IV SCH (09:44)
[2021-06-29] MEDS: pantoprazole 40mg Tablet.DR PO SCH (09:44)
[2021-06-29] MEDS: docusate sod 100mg capsule PO SCH (09:51)
[2021-06-29] MEDS: ketorolac tromethamine 15mg/ml inj. IV PRN (09:51)
[2021-06-29] MEDS: levoFLOXACIN-Levaquin 750MG/D5 150 ML IV SCH (11:11)
[2021-06-29 12:00] VITALS: BP 137/98
[2021-06-29] MEDS ORDERED: LEVO750T46 PO (12:04)
[2021-06-29] MEDS ORDERED: LACT1CAP26 PO (12:04)
[2021-06-29] MEDS ORDERED: METR-159 PO (12:04)
--- NOTE | 2021-06-29 12:34 | NUR ---
Patient has DC orders, needs to tolerate new diet orders first.
--- NOTE | 2021-06-29 15:30 | NUR ---
Patient tolerated regular soft diet well.
--- NOTE | 2021-06-29 15:53 | NUR ---
Patient stable and appropriate for discharge home. IV removed, new prescriptions e-scripted to patients preferred pharmacy. All belongings taken from room. All discharge instructions and education given and reviewed with patient, all questions answered.
== END 2021-06-29 15:50 | disposition home or self-care (01) | DRG 392 ==
LOC: ER 18:46 → ED HOLD 21:30 → UNDOADMIN 21:30 → ED HOLD 21:37 → SUR 3N 23:16 → ED HOLD 23:16
PROVIDERS: ADMIT Family Medicine; ATTEND Family Medicine
PROC: BW211ZZ Computerized Tomography (CT Scan) of Abdomen and Pelvis using Low Osmolar Contrast (ICD-10-PCS; principal; 2021-06-26)
DX: K57.32 Diverticulitis of large intestine without perforation or abscess without bleeding (principal); Z68.41 Body mass index [BMI] 40.0-44.9, adult; E66.01 Morbid (severe) obesity due to excess calories; F12.90 Cannabis use, unspecified, uncomplicated; Z20.822 Contact with and (suspected) exposure to COVID-19; F41.9 Anxiety disorder, unspecified; J45.909 Unspecified asthma, uncomplicated; K21.9 Gastro-esophageal reflux disease without esophagitis; K52.9 Noninfective gastroenteritis and colitis, unspecified; R13.10 Dysphagia, unspecified; Z88.0 Allergy status to penicillin; Z88.1 Allergy status to other antibiotic agents; Z88.8 Allergy status to other drugs, medicaments and biological substances; Z83.3 Family history of diabetes mellitus; Z79.899 Other long term (current) drug therapy
CPT/HCPCS: 36415; 71045; 74177; 80053; 80061; 80305; 81003; 82272; 83036; 83605; 83735; 83880; 84100; 84145; 85025; 85610; 85730; 87040; 87045; 87046; 87081; 87324; 87449; 87635; 89055; 93005; 96365; 96368; 96375; 99285; C9113; C9803; G0378; J1644; J1885; J1956; J2060; J2270; J2405; J2765; J3010; J3370; J3490; J7030; Q9967